=== PATIENT | male | born 1945 | race Caucasian/White ===

== ENCOUNTER 2022-11-07 07:42 | Inpatient (IN) | payer MEDICARE, SELFPAY ==
[2022-11-07] VITALS (67 sets, daily range): BP systolic 98–189; BP diastolic 50–135; PULSE 44–70; RESP 3–29; TEMP 36.4–36.8; O2SAT 82–100; BMI 28.8
[2022-11-07 07:58] LABS: Glucose Point of Care 252 mg/dL (70-110)
--- NOTE | 2022-11-07 08:20 | ECG_ITS ---
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 Measurements Intervals [place] Rate: 54 P: 0 NC: 0 QRS: 19 QRSD: 180 T: 165 QT: 530 QTc: 503 Interpretive Statements ATRIAL FIBRILLATION WITH SLOW VENTRICULAR RESPONSE LEFT BUNDLE BRANCH BLOCK [120+ ms QRS DURATION, 80+ ms Q/S IN V1/V2, 85+ ms R IN I/aVL/V5/V6] INTERPRETATION BASED ON A DEFAULT AGE OF 40 YEARS No previous ECG available for comparison Electronically Signed On 11-08-2022 23:39:42 CDT by North Fernando M.D. [id number] jose maria
--- NOTE | 2022-11-07 08:21 | W.ED.DIZZY ---
HPI - Dizziness General: Chief Complaint: Dizziness Stated Complaint: BRADYCARDIA; N/V Time Seen by Provider: 11/07/22 08:10 History of Present Illness: HPI Narrative: Patient presents to the ER with complaints of nausea vomiting for over the last week. Patient is also bradycardic. Patient saw his family doc last week and was put on calcitriol. Patient also had his metolazone, furosemide, and losartan adjusted. Family thinks these are just too much medication changes at this time. There is no other sick contacts in the house. MD elicited complaint: dizziness (And nausea vomiting) Onset (ago): day(s) (1 week ago after starting calcitriol) Severity: moderate Exacerbating factors: nothing Relieving factors: nothing Associated symptoms: Reports no associated symptoms, nausea and vomiting Associated neuro symptoms: Reports no associated symptoms Review of Systems General: Reports: 10 or more systems reviewed and unremarkable except in HPI and below GI: Reports: nausea and vomiting Physical Exam Const: COMMON NORMALS: no acute distress, average body habitus, patient oriented x3, no limitations, healthy appearing, alert and well nourished HENMT: COMMON NORMALS: normocephalic, atraumatic, hearing grossly normal bilaterally, external ears normal, Normal external nose present and moist oral mucous membranes HEAD & SCALP: normocephalic and atraumatic NOSE: Normal external nose present EXTERNAL EAR: Yes external ears normal Eye: COMMON NORMALS: Equal, round and reactive pupils present, EOMs intact bilaterally, conjunctivae normal and no scleral icterus CONJUNCTIVA: Yes conjunctivae normal PUPIL: Yes Equal, round and reactive pupils present Neck/C-Spine: COMMON NORMALS: full ROM, no lymphadenopathy, supple, no meningeal signs, no JVD and Thyroid normal THYROID: Thyroid normal Chest: COMMONS NORMALS: normal inspection of the chest and normal palpation of entire chest wall Resp: COMMON NORMALS: normal respiratory effort, No retractions, No use of accessory muscles and clear to auscultation bilaterally AUSCULTATION: clear to auscultation bilaterally Cardio: COMMON NORMALS: no JVD, regular rate, regular rhythm, S1 normal heart sound present, S2 normal heart sound present, No gallops present (Cardio), No clicks present (Cardio) and No murmurs present (Cardio) RATE: regular rate RHYTHM: regular rhythm HEART SOUNDS: S1 normal heart sound present and S2 normal heart sound present GI: COMMON NORMALS: Normal to inspection, nondistended, normoactive bowel sounds present, Soft to palpation, non-tender, No hepatosplenomegaly present and no masses PALPATION: Yes Soft to palpation and Yes No hepatosplenomegaly present Neuro: COMMON NORMALS: patient oriented x3 SENSORIUM/ORIENTATION: Yes alert MENINGEAL SIGNS: Yes no meningeal signs Course Vital Signs: Vital signs: Vital Signs Temperature 97.5 F L 11/07/22 07:46 Pulse Rate 55 L 11/07/22 07:46 Respiratory Rate 16 11/07/22 07:46 Blood Pressure 106/50 11/07/22 07:46 Pulse Oximetry 93 11/07/22 07:46 Oxygen Delivery Me thod Room Air 11/07/22 07:46 MDM - Dizziness Medical Decision Making Patient presents to the ER with a 1 week history of nausea vomiting and overall weakness. Patient thought this was due to medication changes approximately 1 week ago with his family doc. He was started on calcitriol. Patient denies any chest pain. Physical exam was performed lab work was obtained which showed a white count of 12.4, BUN creatinine of 52 and 2.1, sodium 132, potassium of 2.1, EKG showed A-fib with slow ventricular response with left bundle branch block, initial troponin was 57. Patient was given 40 mEq orally potassium 1 L normal saline. During these times he had at least 3 bouts of unsustained V-fib. Patient was asymptomatic during these times. Patient is currently on amiodarone and we will supplement with [address] Nielsen was consulted and agrees with inpatient admission to [facility] for further evaluation and treatment. Differential Diagnosis Likely adverse reaction to drug and orthostatic hypotension; Unlikely benign paroxysmal positional vertigo, vertebral basilar insufficiency, cerebrovascular accident, acute vestibular neuronitis or transient cerebral ischemia Medical Records I reviewed the patient's medical records. Lab Data I reviewed the patient's lab results. 11/07/22 07:44 11/07/22 07:44 Laboratory Results WBC 12.4 10^3/uL (4.0-10.0) H 11/07/22 07:44 RBC 6.14 10^6/uL (4.1-5.3) H 11/07/22 07:44 Hgb 18.0 g/dL (11.7-16.6) H 11/07/22 07:44 Hct 52.5 % (42.0-52.0) H 11/07/22 07:44 MCV 85.5 fl (80-94) 11/07/22 07:44 MCH 29.3 pg (28.0-34.0) 11/07/22 07:44 MCHC 34.3 g/dL (30.0-36.0) 11/07/22 07:44 RDW 13.9 % (12.1-15.1) 11/07/22 07:44 Plt Count 287 10^3/cmm (130-400) 11/07/22 07:44 MPV 11.0 fL (7.4-10.4) H 11/07/22 07:44 Neut % (Auto) 83.5 % 11/07/22 07:44 Lymph % (Auto) 6.3 % 11/07/22 07:44 Mcclain % (Auto) 9.1 % 11/07/22 07:44 Eos % (Auto) 0.2 % 11/07/22 07:44 Baso % (Auto) 0.2 % 11/07/22 07:44 Neut # (Auto) 10.38 10^3/uL (1.8-7.7) H 11/07/22 07:44 Lymph # (Auto) 0.8 10^3/uL (0.8-4.8) 11/07/22 07:44 Mcclain # (Auto) 1.1 10^3/uL (0.2-0.9) H 11/07/22 07:44 Eos # (Auto) 0.0 10^3/uL (0.0-0.8) 11/07/22 07:44 Baso # (Auto) 0.0 10^3/uL (0.0-0.1) 11/07/22 07:44 Nucleated RBC % (auto) 0 % 11/07/22 07:44 Nucleated RBCs # 0.0 /100WBC 11/07/22 07:44 Sodium 132 mmol/L (136-145) L 11/07/22 07:44 Potassium 2.1 mmol/L (3.5-5.1) L* 11/07/22 07:44 Chloride 78 mmol/L (98-107) L 11/07/22 07:44 Carbon Dioxide 38 mmol/L (22-29) H 11/07/22 07:44 Anion Gap 18.1 (5-19) 11/07/22 07:44 BUN 52 mg/dL (8-23) H 11/07/22 07:44 Creatinine 2.1 mg/dL (0.7-1.2) H 11/07/22 07:44 GFR Calculation Not Reportable 11/07/22 07:44 Glucose 248 mg/dL (65-115) H 11/07/22 07:44 POC Glucose 252 mg/dL (70-110) H 11/07/22 07:53 Calculated Osmolality 296 mOsm/kg (285-295) H 11/07/22 07:44 Calcium 9.9 mg/dL (8.5-10.5) 11/07/22 07:44 Magnesium 2.9 mg/dL (1.7-2.3) H 11/07/22 07:44 Total Bilirubin 2.5 mg/dL (0.15-1.2) H 11/07/22 07:44 AST 35 U/L (0-40) 11/07/22 07:44 ALT 53 U/L (0-41) H 11/07/22 07:44 Alkaline Phosphatase 190 U/L (40-130) H 11/07/22 07:44 Troponin T Gen 5 ng/L 57 ng/L (0-15) H 11/07/22 07:44 Total Protein 7.1 g/dL (6.6-8.7) 11/07/22 07:44 Albumin 4.2 g/dL (3.5-5.2) 11/07/22 07:44 Globulin 2.9 g/dL (1.3-4.6) 11/07/22 07:44 Urine Color Yellow (Yellow) 11/07/22 09:00 Urine Appearance Clear (CLEAR) 11/07/22 09:00 Urine pH 5 (5-7) 11/07/22 09:00 Ur Specific [place] 1.015 (1.005-1.030) 11/07/22 09:00 Urine Protein Neg (Negative) 11/07/22 09:00 Urine Glucose (UA) 4+ (Normal) H 11/07/22 09:00 Urine Ketones Negative (Negative) 11/07/22 09:00 Urine Blood Neg (Negative) 11/07/22 09:00 Urine Nitrate Negative (Negative) 11/07/22 09:00 Urine Bilirubin Neg (Negative) 11/07/22 09:00 Urine Urobilinogen Norm mg/dL (Negative) 11/07/22 09:00 Ur Leukocyte Esterase Negative (Negative) 11/07/22 09:00 EKG Data EKG 1: I personally reviewed and interpreted this EKG as follows: EKG interpretation date: 11/07/22 EKG interpretation time: 07:45 Prior EKG tracings: not available for review Interpretation: EKG showed shows ventricular rate of 54 bpm, atrial fibrillation with slow ventricular response, QRS duration 180, QTc of 515, left bundle branch block, EKG 2: I personally reviewed and interpreted this EKG as follows: EKG interpretation date: 11/07/22 EKG interpretation time: 09:56 Prior EKG tracings: available for review Interpretation: EKG showed A-fib with slow ventricular response with a rate of 49 bpm, QRS duration 178, QTc of 509, left bundle branch block, Discharge Plan Discharge Patient Disposition: Admitted As Inpatient Clinical Impression: Idiopathic ventricular fibrillation, Atrial fibrillation with slow ventricular response, Acute hypokalemia, Acute renal insufficiency, Hypermagnesemia Condition: Stable Prescriptions: No Action losartan 50 mg tablet 50 mg PO DAILY furosemide 40 mg tablet 40 mg PO BID metolazone 2.5 mg tablet See Rx Instructions .ROUTE .COMPLEX Rx Instructions: 2.5 mg orally Tuesday, , Tuesday atorvastatin 80 mg tablet 80 mg PO DAILY glyburide 5 mg tablet 5 mg PO BID amiodarone 200 mg tablet 200 mg PO DAILY clopidogrel 75 mg tablet 75 mg PO DAILY isosorbide mononitrate 60 mg tablet extended release 24 hr 60 mg PO DAILY tamsulosin 0.4 mg capsule 0.4 mg PO DAILY nitroglycerin 0.4 mg tablet, sublingual 0.4 mg sublingual Q5MIN PRN (Reason: Chest Pain) Farxiga 10 mg tablet 10 mg PO DAILY Coding Level of Care Code ED Regulator Pin Inserter for Prema Flower
[2022-11-07 08:36] LABS: Basophils % 0.2 %; Eosinophils % 0.2 %; Hematocrit 52.5 % (42.0-52.0); Lymphocytes # 0.8 10^3/uL (0.8-4.8); Lymphocytes % 6.3 %; Mean Corpuscular HGB Conc 34.3 g/dL (30.0-36.0); Mean Corpuscular Hemoglobin 29.3 pg (28.0-34.0); Mean Corpuscular Volume 85.5 fl (80-94); Monocytes # 1.1 10^3/uL (0.2-0.9); Monocytes % 9.1 %; Neutrophils # 10.38 10^3/uL (1.8-7.7); Neutrophils % 83.5 %; Nucleated Red Blood Cells % 0 %; Platelet Count 287 10^3/cmm (130-400); Red Blood Count 6.14 10^6/uL (4.1-5.3); Red Cell Distribution Width 13.9 % (12.1-15.1); White Blood Count 12.4 10^3/uL (4.0-10.0)
[2022-11-07 08:50] LABS: Alanine Aminotransferase 53 U/L (0-41); Albumin Level 4.2 g/dL (3.5-5.2); Alkaline Phosphatase 190 U/L (40-130); Anion Gap 18.1 (5-19); Aspartate Amino Transferase 35 U/L (0-40); Blood Urea Nitrogen 52 mg/dL (8-23); Calcium 9.9 mg/dL (8.5-10.5); Carbon Dioxide 38 mmol/L (22-29); Chloride 78 mmol/L (98-107); Globulin 2.9 g/dL (1.3-4.6); Glucose 248 mg/dL (65-115); Magnesium 2.9 mg/dL (1.7-2.3); Osmolality Calculated 296 mOsm/kg (285-295); Sodium 132 mmol/L (136-145); Total Bilirubin 2.5 mg/dL (0.15-1.2); Total Protein 7.1 g/dL (6.6-8.7)
[2022-11-07 09:04] LABS: Troponin T (5th) Once 57 ng/L (0-15)
[2022-11-07 09:04] LABS: Add Urine Microscopic? NO; Charge for UA Resulting for Rev
[2022-11-07 09:05] LABS: Potassium 2.1 mmol/L (3.5-5.1)
[2022-11-07 09:18] LABS: Bilirubin Urine Neg (Negative); Blood Urine Neg (Negative); Glucose Urine UA 4+ (Normal); Ketones Urine Negative (Negative); Leukocyte Esterase Urine Negative (Negative); Nitrate Urine Negative (Negative); Protein Urine Neg (Negative); Specific Gravity, Urine 1.015 (1.005-1.030); Urine Appearance Clear (CLEAR); Urine Color Yellow (Yellow); Urobilinogen Urine Norm (Negative); pH Urine 5 (5-7)
[2022-11-07] MEDS: potassium chloride ER 20 mEq Tablet 40 MEQ PO (09:19)
[2022-11-07] MEDS: ondansetron 2 mg/ML SDV 2 mL 4 MG IVP (09:19)
[2022-11-07] MEDS: sodium chloride 0.9% 1,000 ML 999 ML IV (09:21)
--- NOTE | 2022-11-07 09:56 | ECG_ITS ---
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 Measurements Intervals [place] Rate: 49 P: 0 [place]: 0 QRS: 16 QRSD: 178 T: 161 QT: 538 QTc: 489 Interpretive Statements ATRIAL FIBRILLATION WITH SLOW VENTRICULAR RESPONSE LEFT BUNDLE BRANCH BLOCK [120+ ms QRS DURATION, 80+ ms Q/S IN V1/V2, 85+ ms R IN I/aVL/V5/V6] Compared to ECG 11/07/2022 07:45:39 No significant changes Electronically Signed On 11-08-2022 23:37:21 CDT by North Fernando M.D. [id number]
--- NOTE | 2022-11-07 10:49 | PC.NURSE ---
PC TO PHARMACY SPOKE WITH [facility] PHARMACIST HE STATED THAT AMIODARONE CAN BE ADM OF 10 MINUTES UNDILUTED SLOW IVP.
[2022-11-07] MEDS: amiodarone 50 mg/mL SDV 3 mL 150 MG IVP (10:53)
--- NOTE | 2022-11-07 11:11 | PC.NURSE ---
REPORT CALLED TO JERI RN IN [facility] SHE REPORTED THAT THE ROOM WAS NOT AVAILABLE AT THIS TIME AND THAT SHE WOULD CALL US WHEN IT WAS READY.
--- NOTE | 2022-11-07 12:45 | PC.NURSE ---
arrived from ER Pt is alert, orientedx4. denies any chest pain or discomfort. Pt is oriented to room and staff. telemetry attached to pt. pt is on slow Afib w/LBBB. call light provided to pt. notified provider on pt's arrival to room.
--- NOTE | 2022-11-07 12:46 | USCV_ITS ---
Pola Lucero Age: 77 Gender: M : 1945 Exam Date: 11/07/2022 15:37 Ordering Phys: Davy Nielsen MD Technologist: Diallo Grant [place] [facility] [place]: afib BP: 107 / 69 HR: Rhythm: Sinus Technical Quality: Adequate MEASUREMENTS (Male / Female) Normal Values 2D ECHO LV Diastolic Diameter PLAX 4.9 cm 4.2 - 5.9 / 3.9 - 5.3 cm LV Systolic Diameter PLAX 2.8 cm IVS Diastolic Thickness 1.3 cm 0.6 - 1.0 / 0.6 - 0.9 cm IVS Systolic Thickness 1.7 cm LVPW Diastolic Thickness 1.5 cm 0.6 - 1.0 / 0.6 - 0.9 cm LVPW Systolic Thickness 1.5 cm LVOT Diameter 2.0 cm LV Ejection Fraction 2D Teich 67.0 % LV Ejection Fraction MOD 2C 57.1 % LV Ejection Fraction 2C AL 57.0 % LA Diameter 4.6 cm IVC Diameter 1.8 cm M-MODE Aortic Annulus Diameter 3.6 cm LA Ao Ratio MM 1.4 MV E Point Septal Separation 2.0 cm DOPPLER AV Peak Velocity 207.0 cm/s LVOT Peak Velocity 125.0 cm/s AV Area Cont Eq vti 1.8 cm squared AV Area Cont Eq pk 1.9 cm squared MV Area PHT 5.0 cm squared Mitral E to A Ratio 1.3 MV E' Velocity 42.0 cm/s Mitral E to MV E' Ratio 9.4 Mitral E to LV E' Lateral Ratio 6.6 Mitral E to LV E' Septal Ratio 17.1 TR Peak Velocity 176.0 cm/s TR Peak Gradient 12.4 mmHg TV Peak E Velocity 77.0 cm/s Right Atrial Pressure 3.0 mmHg Pulmonary Artery Systolic Pressu 15.4 mmHg RV Acceleration Time 0.1 s FINDINGS Left Ventricle Normal left ventricular size, mild systolic dysfunction and wall thickness, with no regional wall motion abnormalities. Normal left ventricular wall thickness. Normal diastolic filling pattern. EF 40-45% . Baseline rhythm AF which mat effect LV function determination Right Ventricle The right ventricle is normal in size and function. Right Atrium The right atrium is normal in size. Left Atrium The left atrium is normal in size. Mitral Valve Structurally normal mitral valve without significant stenosis or prolapse. There is no mitral regurgitation. Aortic Valve Structurally normal aortic valve without significant sclerosis or stenosis. There is no aortic regurgitation. Mild restriction aortic valve . Calcified Tricuspid Valve Structurally normal tricuspid valve without significant stenosis or regurgitation. Pulmonary artery systolic pressure is normal. Pulmonic Valve Structurally normal pulmonic valve without significant stenosis. There is no pulmonic regurgitation. Pericardium Normal pericardium without effusion. Aorta Normal ascending aorta dimension. IVC The inferior vena cava appears normal. CONCLUSIONS Inocencia Abdi MD (Electronically Signed) Final Date: 07 Nov 2022 17:08 S
--- NOTE | 2022-11-07 12:47 | P.HP_ITS ---
Providers/Chief Complaint Admitting Physician: Davy Nielsen MD Chief Complaint: BRADYCARDIA; N/V History of Present Illness Pola Lucero is a 77 year old male with a history of atrial fibrillation, on Eliquis, HFrEF, with EF of 40 to 45%, CKD, hypertension, Came in with chief complaint of, ongoing dizziness, nausea, vomiting, generaliz ed weakness, going on for the last 3 days, dizziness was worse today, recent medication adjustments were made by his technical translator in [place], calcitriol was added, possibly dose adjustment was made to Lasix metolazone and losartan ,but the specific details are currently available. When he came to the ER, he was found to be severely hypokalemic, with serum potassium of 2.1, in the ER he also experienced, at least 3 episodes of nonsustained V-fib as per the ER chart, which he was given amiodarone 150 mg IV bolus. Patient also had an episode of nonsustained VT on the floor, he was completely asymptomatic during the episode and was deep asleep. EKG has shown A-fib with slow ventricular response. Pertinent labs: Includes : WBC:12.4, H&H:18/52 , plt : 287 , sodium 132, serum potassium 2.1, BUN: 52 , SCR: 2.1 , magnesium: 2.9 , baseline troponin 56. Patient was given p.o. potassium 40 in ER. Review of Systems General: Reports: 10 or more systems reviewed and unremarkable except in HPI and below Const: Denies: fever(s), chills, body aches, change in appetite or diaphoresis Card: Denies: palpitations, edema, swelling of feet/ankles, dyspnea on exertion, orthopnea or leg pain with exertion Resp: Denies: dyspnea, productive cough, wheezing or pain on inspiration GI: Denies: abdominal pain, nausea, vomiting, diarrhea or constipation : Denies: flank pain or difficulty urinating Musc: Denies: back pain, extremity pain or extremity swelling Neuro: Denies: headache(s), difficulty walking or confusion Medications/Allergies Home Medications Medication Instructions Recorded Confirmed Last Taken Type amiodarone 200 mg tablet 200 mg PO DAILY 11/07/22 11/07/22 11/06/22 History apixaban 5 mg tablet (Eliquis) 5 mg PO BID 11/07/22 11/07/22 11/06/22 History atorvastatin 80 mg tablet 80 mg PO BEDTIME 11/07/22 11/07/22 11/06/22 History clopidogrel 75 mg tablet 75 mg PO DAILY 11/07/22 11/07/22 11/06/22 History dapagliflozin 10 mg tablet 10 mg PO DAILY 11/07/22 11/07/22 11/06/22 History ([facility]) furosemide 40 mg tablet 40 mg PO DAILY 11/07/22 11/07/22 11/06/22 History glyburide 5 mg tablet 5 mg PO BID 11/07/22 11/07/22 11/06/22 History isosorbide mononitrate 60 mg 60 mg PO DAILY 11/07/22 11/07/22 11/06/22 History tablet,extended release 24 hr losartan 50 mg tablet 50 mg PO DAILY 11/07/22 11/07/22 11/06/22 History metolazone 2.5 mg tablet See Rx Instructions .Route .COMPLEX 11/07/22 11/07/22 11/05/22 History nitroglycerin 0.4 mg sublingual 0.4 mg sublingual Q5MIN PRN Chest 11/07/22 11/07/22 Unknown History tablet Pain omeprazole magnesium 20 mg 20 mg PO DAILY 11/07/22 11/07/22 11/06/22 History capsule,delayed release tamsulosin 0.4 mg capsule 0.4 mg PO BEDTIME 11/07/22 11/07/22 11/06/22 History Allergies Allergy/AdvReac Type Severity Reaction Status Date / Time adhesive tape Allergy Unknown Unknown Verified 11/07/22 09:18 calcitriol Allergy ADR/ALGY-Hy Verified 11/07/22 09:24 potension dulaglutide [From Trulicity] Allergy ADR-Nausea Verified 11/07/22 09:24 fentanyl Allergy ADR-Nausea Verified 11/07/22 09:24 naproxen [From Aleve] Allergy ALGY-Rash Verified 11/07/22 09:24 Vitals/I&O/Wt Last Vital Signs Temp 97.5 F L 11/07/22 07:46 Pulse 49 L 11/07/22 12:29 Resp 16 11/07/22 12:29 BP 98/63 11/07/22 12:29 Pulse Ox 91 11/07/22 12:29 O2 Del Method Room Air 11/07/22 12:29 11/06/22 11/07/22 11/07/22 22:59 06:59 14:59 Intake Total 1000 / 1000 Balance 1000 / 1000 Weight last 48 hrs Weight 86.183 kg Physical Exam Const: COMMON NORMALS: patient oriented x3 HENMT: COMMON NORMALS: normocephalic and atraumatic Resp: COMMON NORMALS: normal respiratory effort, No retractions, No use of acc essory muscles and clear to auscultation bilaterally EFFORT & INSPECTION: Yes symmetric chest movement AUSCULTATION: clear to auscultation bilaterally Cardio: OTHER: Irregularly irregular rhythm S1-S2 variable intensity GI: COMMON NORMALS: Normal to inspection, nondistended, normoactive bowel sounds present, Soft to palpation, non-tender, No hepatosplenomegaly present and no masses AUSCULTATION: Yes normoactive bowel sounds PALPATION: Yes Soft to palpation and Yes No hepatosplenomegaly present RECTAL EXAM: Yes deferred Extremity: COMMON NORMALS: no clubbing, cyanosis or edema and no pedal edema Neuro: COMMON NORMALS: patient oriented x3 Data 11/07/22 07:44 11/07/22 18:45 A&P Assessment and plan (1) Idiopathic ventricular fibrillation: (2) Atrial fibrillation with slow ventricular response: (3) Acute hypokalemia: (4) Acute kidney injury superimposed on CKD: (5) Transaminitis: (6) Elevated bilirubin: (7) Diabetes: (8) Hyponatremia: (9) Total bilirubin, elevated: Plan 77 year old male with a history of atrial fibrillation, on Eliquis, HFrEF, with EF of 40 to 45%, CKD, hypertension, Came in with chief complaint of, ongoing dizziness, nausea, vomiting, generalized weakness, going on for the last 3 days, dizziness was worse today, r ecent medication adjustments were made by his technical translator in [place], calcitriol was added, possibly dose adjustment was made to Lasix metolazone and losartan. Assessment: Nonsustained VT/ VF: Likely secondary to severe hypokalemia: Possibly secondary to recent changes made to the diuretic. 2D echo: Normal left ventricular size, mild systolic dysfunction and wall thickness, with no regional wall motion abnormalities.Normal left ventricular wall thickness. Normal diastolic filling ?pattern. EF 40-45% .The right ventricle is normal in size and function. No gross valvular abnormality. No RWMA noted. Aggressive potassium correction has been undertaken, currently he has received 60 mEq IV potassium, as well as 40 mEq p.o. potassium. Serum potassium is being monitored. Lasix metolazone has been kept on hold. Continue telemetry monitoring Consider cardiology consult History of atrial fibrillation: Continue amiodarone Currently on Lovenox for therapeutic anticoagulation We will resume Eliquis on discharge HFrEF : Currently compensated: Rather slightly dry Monitor intake and output charting. Daily weight. CKD versus LELAND on CKD: Admission serum creatinine 2.1 Baseline serum creatinine unknown Monitor BMP Avoid nephrotoxic's Monitor electrolytes Monitor intake output charting Currently on IV hydration with normal saline Random urine sodium Random urine creatinine Hold losartan History of hypertension: Blood pressure is currently soft: Hold losartan and IMDUR FOR NOW History of diabetes: LDSSI, monitor fingerstick glucose Diabetic diet History of coronary artery disease: Continue Plavix statin CODE STATUS: Full code DVT prophylaxis: On Lovenox Attestations Medical Necessity Statement*: Patient is to be in hospital management of acute hypokalemia, need for IV potassium replacement. Anticipated length of stay: Greater than 2 midnights Coding Level of Care Code Acute Code for g Fwd Diagnoses Idiopathic ventricular fibrillation I49.01 Atrial fibrillation with slow ventricular response I48.91 Acute hypokalemia E87.6 Acute kidney injury superimposed on CKD N17.9; N18.9 Transaminitis R74.01 Elevated bilirubin R17 Diabetes E11.9 Hyponatremia E87.1 Total bilirubin, elevated R17
[2022-11-07 13:08] LABS: Glucose Point of Care 256 mg/dL (70-110)
[2022-11-07] MEDS: heparin 5,000 unit/mL INJ 1 mL 5000 UNIT SUBCUT (13:50)
[2022-11-07] MEDS: sodium chlor 0.9% + KCl 20 mEq 20 MEQ/1,000 ML BAG 100 MEQ IV ×2 (13:50→23:26)
[2022-11-07 14:51] LABS: Troponin T (5th) Once 56 ng/L (0-15)
--- NOTE | 2022-11-07 14:51 | PC.NURSE ---
VTach noted on the monitor Nurse in room with family at bedside. pt look his sleeping soundly. noted 18 beat of vtach. Pt is awoken from sleep. Pt woke up. he stated I almost falling in deep sleep. Pt denies any chest pain, or discomfort. Pt is alert, oriented. Family at bedside informed on pt's hr rhythm and his electrolyte potassium supplementation. dr ryan is notified via telephone on pt's vtach episode.
[2022-11-07 14:52] LABS: Anion Gap 15.5 (5-19); Blood Urea Nitrogen 50 mg/dL (8-23); Calcium 9.3 mg/dL (8.5-10.5); Carbon Dioxide 36 mmol/L (22-29); Chloride 82 mmol/L (98-107); Glucose 262 mg/dL (65-115); Osmolality Calculated 294 mOsm/kg (285-295); Sodium 131 mmol/L (136-145)
[2022-11-07] MEDS: lidocaine 1% 5 ML in potassium chloride premix 100 ML 26.25 ML IV (14:52)
[2022-11-07 15:01] LABS: Potassium 2.5 mmol/L (3.5-5.1)
[2022-11-07 17:15] LABS: Glucose Point of Care 185 mg/dL (70-110)
[2022-11-07] MEDS: insulin lispro 100 unit/1 mL SUBCUT ×2 (17:41→20:44)
[2022-11-07 19:23] LABS: Blood Urea Nitrogen 49 mg/dL (8-23); Calcium 8.3 mg/dL (8.5-10.5); Carbon Dioxide 33 mmol/L (22-29); Chloride 87 mmol/L (98-107); Glucose 224 mg/dL (65-115); Osmolality Calculated 292 mOsm/kg (285-295); Sodium 131 mmol/L (136-145)
--- NOTE | 2022-11-07 20:06 | PC.NURSE ---
pt stated he use cpap when he sleeps. 2 L per NC applied to pt while is going to bring his cpap from home.
[2022-11-07] MEDS: lidocaine 1% 5 ML in potassium chloride premix 100 ML 52.5 ML IV (20:43)
[2022-11-08] VITALS (36 sets, daily range): BP systolic 96–143; BP diastolic 42–69; PULSE 42–70; RESP 6–23; TEMP 36.5–37.2; O2SAT 82–95
[2022-11-08] MEDS: enoxaparin 100 mg/mL Syringe 90 MG SUBCUT ×2 (02:08→13:52)
[2022-11-08 02:44] LABS: Glucose Point of Care 196 mg/dL (70-110)
[2022-11-08 03:56] LABS: Basophils % 0.2 %; Eosinophils # 0.1 10^3/uL (0.0-0.8); Eosinophils % 0.4 %; Hematocrit 47.8 % (42.0-52.0); Hemoglobin 15.9 g/dL (11.7-16.6); Lymphocytes # 1.1 10^3/uL (0.8-4.8); Lymphocytes % 9.6 %; Mean Corpuscular HGB Conc 33.3 g/dL (30.0-36.0); Mean Corpuscular Hemoglobin 29.9 pg (28.0-34.0); Mean Platelet Volume 10.8 fL (7.4-10.4); Monocytes % 8.7 %; Neutrophils # 8.98 10^3/uL (1.8-7.7); Neutrophils % 80.5 %; Nucleated Red Blood Cells % 0 %; Platelet Count 219 10^3/cmm (130-400); Red Blood Count 5.31 10^6/uL (4.1-5.3); Red Cell Distribution Width 14.3 % (12.1-15.1); White Blood Count 11.2 10^3/uL (4.0-10.0)
[2022-11-08 04:15] LABS: Troponin T (5th) Once 47 ng/L (0-15)
[2022-11-08 04:18] LABS: Alanine Aminotransferase 39 U/L (0-41); Albumin Level 3.3 g/dL (3.5-5.2); Alkaline Phosphatase 143 U/L (40-130); Anion Gap 12.7 (5-19); Aspartate Amino Transferase 29 U/L (0-40); Blood Urea Nitrogen 45 mg/dL (8-23); Calcium 8.9 mg/dL (8.5-10.5); Carbon Dioxide 33 mmol/L (22-29); Chloride 92 mmol/L (98-107); Globulin 2.3 g/dL (1.3-4.6); Glucose 58 mg/dL (65-115); Magnesium 2.7 mg/dL (1.7-2.3); Osmolality Calculated 289 mOsm/kg (285-295); Sodium 135 mmol/L (136-145); Total Bilirubin 1.5 mg/dL (0.15-1.2); Total Protein 5.6 g/dL (6.6-8.7)
[2022-11-08 04:19] LABS: Potassium 2.7 mmol/L (3.5-5.1)
[2022-11-08] MEDS: potassium chloride ER 20 mEq Tablet 40 MEQ PO (05:31)
[2022-11-08 06:18] LABS: Glucose Point of Care 65 mg/dL (70-110)
[2022-11-08] MEDS: atorvastatin 40 mg Tablet 80 MG PO (09:10)
[2022-11-08] MEDS: tamsulosin 0.4 mg Capsule PO (09:10)
[2022-11-08] MEDS: sodium chlor 0.9% + KCl 20 mEq 20 MEQ/1,000 ML BAG 100 MEQ IV (09:10)
[2022-11-08] MEDS: clopidogrel 75 mg Tablet PO (09:10)
[2022-11-08 09:58] LABS: Blood Urea Nitrogen 40 mg/dL (8-23); Calcium 8.3 mg/dL (8.5-10.5); Carbon Dioxide 31 mmol/L (22-29); Chloride 94 mmol/L (98-107); Glucose 251 mg/dL (65-115); Osmolality Calculated 298 mOsm/kg (285-295); Sodium 135 mmol/L (136-145)
[2022-11-08 11:46] LABS: Glucose Point of Care 239 mg/dL (70-110)
[2022-11-08 12:38] LABS: Iron 53 ug/dL (59-158); Percent Saturation 21.2 % (20-50); Total Iron Binding Capacity 250 mcg/dl; Unsaturated Iron Binding 197 ug/dL (112-347)
[2022-11-08] MEDS: insulin lispro 100 unit/1 mL SUBCUT ×2 (12:42→21:20)
[2022-11-08] MEDS: potassium chloride ER 20 mEq Tablet 80 MEQ PO (12:42)
[2022-11-08 12:57] LABS: Thyroid Stimulating Hormone 0.69 uIU/mL (0.27-4.20); Vitamin B12 499 pg/mL (232-1245)
[2022-11-08 16:18] LABS: Glucose Point of Care 107 mg/dL (70-110)
[2022-11-08 17:36] LABS: Blood Urea Nitrogen 40 mg/dL (8-23); Calcium 8.5 mg/dL (8.5-10.5); Carbon Dioxide 32 mmol/L (22-29); Chloride 97 mmol/L (98-107); Creatinine Clr Calc Pharmacy 43.2459; Glucose 95 mg/dL (65-115); Osmolality Calculated 294 mOsm/kg (285-295); Sodium 137 mmol/L (136-145)
--- NOTE | 2022-11-08 17:49 | PM.PN ---
Subjective Subjective: Hospital course, labs appreciated. Seen with family at bedside. Patient sitting comfortably in bed. Denies any further dizziness. States he was having dizziness at home on changing position, while standing up from sitting position. Denied any chest pain or palpitation during the episode. Did have mild nausea. Patient has significant history of CAD with last stent around 1 years ago. Vitals/I&O/Wt Last Vital Signs Temp 98.2 F 11/08/22 16:00 Pulse 66 11/08/22 16:00 Resp 23 H 11/08/22 16:00 BP 109/57 11/08/22 16:00 Pulse Ox 90 11/08/22 16:00 O2 Del Method Nasal Cannula 11/08/22 16:00 O2 Flow Rate 1.5 11/07/22 19:01 11/08/22 11/08/22 11/08/22 06:59 14:59 22:59 Intake Total 1105 / 2450 2076.666 / 2076.666 360 / 2436.666 Output Total 400 / 1300 850 / 850 Balance 705 / 1150 1226.666 / 1226.666 360 / 1586.666 Weight last 48 hrs Weight 85.729 kg Weight 86.183 kg Physical Exam Narrative: EXAM NARRATIVE: General: No acute distress, AO x3, NC oxygen supplementation HEENT: PERRLA, pupils bilaterally equal and reactive Chest:Bronchial breath sounds b/l ,decreased air entry, equal good air entry bilaterally, no more fine basal crackles CVS: S1-S2 regular, no murmurs, no tachycardia, no gallops, no rubs Abdomen: Soft, nontender, no organomegaly, bowel sounds present, morbidly obese Neuro: No focal deficits, no facial deformity, AO x3, power 5/5 in all limbs Data 11/08/22 03:39 11/08/22 16:34 A&P Assessment and plan (1) Dizziness: (2) Nonsustained ventricular tachycardia: (3) Acute hypokalemia: (4) Atrial fibrillation with slow ventricular response: (5) Acute kidney injury superimposed on CKD: (6) Transaminitis: (7) Elevated bilirubin: (8) Diabetes: (9) Hyponatremia: (10) Total bilirubin, elevated: Plan 77 year old male with a history of atrial fibrillation, on Eliquis, HFrEF, with EF of 40 to 45%, CKD, hypertension, came in with chief complaint of, ongoing dizziness, nausea, vomiting, generalized weakness, going on for the last 3 days, dizziness was worse today, recent medication adjustments were made by his carbon capture power plant operator in [place], calcitriol was added, possibly dose adjustment was made to Lasix metolazone and losartan. Assessment: Dizziness: Multifactorial. Most likely in combination of nonsustained V. tach, acute hypokalemia and current bradycardia. Nonsustained V. tach: Could be secondary to electrolyte abnormality. Cannot rule out ischemia in setting of significant CAD. Troponin cycle not done on admission. Will check baseline troponin and if elevated will go ahead with with troponin cycle. Echocardiogram done shows an EF of 40 to 45% without regional wall motion abnormality. We will try to get documentation about past history from patient's rn licensed practical. Hypokalemia: Repleted in AM. Replete 80 mg once more. Repeat potassium in afternoon. Hold off on diuretics for now. Bradycardia: Patient does have history of atrial fibrillation. At baseline takes amiodarone 200 mg oral daily. Heart rate heart rate in low 50s at rest. Hold off on amiodarone. Monitor with telemetry. Check orthostatics. History of CAD: Denies any active chest pain. We will plan for Lexiscan stress test to rule out ischemia. Continue with home dose of Plavix, statin. Switch to Eliquis to full dose Lovenox 1 mg/kg body weight [place]ola hourly for now. Check A1c, lipid panel. Echocardiogram as above. CKD: As per patient his creatinine has been trending up recently. Has been following up with outpatient carbon capture power plant operator. Creatinine currently trending down. Repeat BMP in afternoon. Monitor strict input output charting., Daily weights. Stop IV fluids. Fluid restriction up to 1500 cc. Medical reconciliation done for nephrotoxic drugs. Hypertension: Goal blood pressure less than 140/90 mmHg with mean over 65. Blood pressure soft currently. At home takes Imdur 60 mg, losartan 50 mg. Hold off on antihypertensives for now. Type 2 diabetes mellitus: Check A1c. Stop OHA's. Insulin sliding scale before meals and at bedtime. Full code. Carb consistent cardiac diet. Attestations Medical Necessity Statement*: Requires further hospitalization for management of dizziness in setting of bradycardia, recurrent nonsustained V. tach, acute hypokalemia in a patient with baseline CAD post PCI Diagnoses Dizziness R42 Nonsustained ventricular tachycardia I47.29 Acute hypokalemia E87.6 Atrial fibrillation with slow ventricular response I48.91 Acute kidney injury superimposed on CKD N17.9; N18.9 Transaminitis R74.01 Elevated bilirubin R17 Diabetes E11.9 Hyponatremia E87.1 Total bilirubin, elevated R17
--- NOTE | 2022-11-08 17:57 | ECG_ITS ---
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 Interpretive Statements NAME OF STUDY: LEXISCAN SESTAMIBI STRESS TEST INDICATION: hx of cad PROCEDURE: At the baseline, the blood pressure was 113/66 mmHg with a heart rate of 58 bpm. The electrocardiogram showed atrial fibrillation, left bundle branch block. The Lexiscan was infused over a period of 20 seconds. A total of 0.4 milligrams of Lexiscan was infused. The stress phase was continued for a total of 5 minutes. Heart rate at the end of the stress phase was 68 bpm with a blood pressure 107/61 mmHg. The EKG at the peak infusion revealed no changes. Sestamibi was injected 20 seconds after the Lexiscan infusion. Blood pressure at the end of the recovery phase was 113 over 61 mm with a heart rate of 66 beats per minute. CONCLUSION: 1. Nondiagnostic EKG response to LexiScan infusion given baseline left bundle branch block. 2. No LexiScan induced chest pain or cardiac arrhythmia. 3. Normal blood pressure and heart rate response. 4. Sestamibi/sestamibi perfusion scan pending; see separate report. Electronically Signed On 11-09-2022 12:25:02 CDT by Mamie Waterman M.D. [email or web address]
[2022-11-09] VITALS (11 sets, daily range): BP systolic 108–144; BP diastolic 60–92; PULSE 54–73; RESP 16–20; TEMP 36.4–36.8; O2SAT 91–95
[2022-11-09] MEDS: enoxaparin 100 mg/mL Syringe 90 MG SUBCUT ×2 (03:09→15:42)
[2022-11-09 06:25] LABS: Basophils % 0.3 %; Eosinophils # 0.1 10^3/uL (0.0-0.8); Eosinophils % 1.6 %; Hematocrit 46.6 % (42.0-52.0); Hemoglobin 14.8 g/dL (11.7-16.6); Lymphocytes # 1.1 10^3/uL (0.8-4.8); Mean Corpuscular HGB Conc 31.8 g/dL (30.0-36.0); Mean Corpuscular Volume 91.4 fl (80-94); Mean Platelet Volume 11.5 fL (7.4-10.4); Monocytes # 0.7 10^3/uL (0.2-0.9); Monocytes % 9.3 %; Neutrophils # 5.94 10^3/uL (1.8-7.7); Neutrophils % 74.2 %; Nucleated Red Blood Cells % 0 %; Platelet Count 194 10^3/cmm (130-400); Red Cell Distribution Width 14.4 % (12.1-15.1)
[2022-11-09 06:43] LABS: Glucose Point of Care 99 mg/dL (70-110)
[2022-11-09 06:46] LABS: Alanine Aminotransferase 41 U/L (0-41); Albumin Level 3.1 g/dL (3.5-5.2); Alkaline Phosphatase 123 U/L (40-130); Anion Gap 12.5 (5-19); Aspartate Amino Transferase 30 U/L (0-40); Blood Urea Nitrogen 34 mg/dL (8-23); Calcium 8.6 mg/dL (8.5-10.5); Carbon Dioxide 30 mmol/L (22-29); Chloride 96 mmol/L (98-107); Chol HDL Ratio 2.33 mg/dL (1.0-5.00); Cholesterol 105 mg/dL (0-200); Globulin 2.3 g/dL (1.3-4.6); Glucose 78 mg/dL (65-115); HDL Cholesterol 45 mg/dL (60-100); LDL Cholesterol Calculated 49 mg/dL (50-129); Osmolality Calculated 286 mOsm/kg (285-295); Potassium 3.5 mmol/L (3.5-5.1); Sodium 135 mmol/L (136-145); Total Bilirubin 1.3 mg/dL (0.15-1.2); Total Protein 5.4 g/dL (6.6-8.7); Triglycerides 57 mg/dL (0-150); VLDL Cholestrol Calculation 11 mg/dL (0-30)
[2022-11-09 06:58] LABS: Estmated Average Glucose 183
[2022-11-09 07:07] LABS: Folate Level 9.5 ng/mL (4.5-32.2)
[2022-11-09] MEDS: regadenoson 0.4 Mg/5 ml Syringe IVP (07:07)
[2022-11-09 07:59] LABS: Glucose Point of Care 201 mg/dL (70-110)
[2022-11-09] MEDS: tamsulosin 0.4 mg Capsule PO (08:46)
[2022-11-09] MEDS: atorvastatin 40 mg Tablet 80 MG PO (08:46)
[2022-11-09] MEDS: clopidogrel 75 mg Tablet PO (08:46)
--- NOTE | 2022-11-09 09:13 | PC.CHAP ---
Pastoral Care Encounter/Spiritual Assessment Type of Contact [] Declined resource engineer visit [] Patient/Family/Request visit [] Outpatient visit [] Follow-up visit [] Physician referral [] Code/Alert [x] Routine visit [] Staff referral [] Actively dying [] Patient sleeping [x] Family support [] [] Out of room [] Palliative care [] [] Receiving care in room [] Pre-surgical visit [] Trauma [] Long length of stay [] ICU visit [] Other: Relational/Emotional Strength [x] Patient feels connected with others/family/visitors/staff [] Distress [] Loneliness/isolation [] Abandonment Spirituality of Patient [x] Person of Anita [] Attends Jainism of their Anita [x] Believes in Prayer [] Reads Bible or Bahai materials [] There are Spiritual issues to be addressed I&C Tech Interventions [x] Prayer [] Active listening [] Non-anxious presence [x] Spiritual/emotional support [] Crisis/trauma care [] Spiritual counseling [] Bereavement support [] Provided bereavement packet [] Provided Bible/devotional materials [] Provided toy/stuffed animal, coloring book to patient or family member [] Provided Communion [] Anointing/[place] [] Salvation [x] Completed spiritual assessment [] Other: Impact on Illness or Injury [] Angry [] Fearful [] Anxious [] Often cries [] Exhaustion [] Unable to work [] Unable to attend episcopal [] Unable to walk/stand [] Unable to read [] Unable to drive [] Unable to eat/drink [] Unable to sleep [] Unable to be with family [] Patient intubated [] Other: Summary Time spent with patient 5 min
[2022-11-09 11:42] LABS: Glucose Point of Care 276 mg/dL (70-110)
[2022-11-09] MEDS: insulin lispro 100 unit/1 mL SUBCUT ×2 (11:50→20:35)
--- NOTE | 2022-11-09 12:42 | P.PN_ITS ---
Subjective Subjective: No acute events overnight. Patient has remained hemodynamically stable and afebrile. Heart rate running in high 50s. Patient asymptomatic. Orthostatics checked yesterday negative. Documented urine output in last 24 hours up to 1600 cc. Telemetry has remained stable telemetry showing atrial fibrillation with controlled rate to bradycardia with few episodes of VPCs. Vitals/I&O/Wt Last Vital Signs Temp 97.6 F 11/09/22 08:22 Pulse 61 11/09/22 11:18 Resp 20 H 11/09/22 11:18 BP 114/60 11/09/22 11:18 Pulse Ox 91 11/09/22 11:18 O2 Del Method Room Air 11/09/22 11:18 O2 Flow Rate 2 11/09/22 04:00 11/08/22 11/09/22 11/09/22 22:59 06:59 14:59 Intake Total 360 / 2436.666 480 / 2916.666 240 / 240 Output Total 750 / 1600 630 / 2230 Balance -390 / 836.666 -150 / 686.666 240 / 240 Weight last 48 hrs Weight 85.956 kg Weight 85.729 kg Physical Exam Narrative: EXAM NARRATIVE: General: No acute distress, AO x3, NC oxygen supplementation HEENT: PERRLA, pupils bilaterally equal and reactive Chest:Bronchial breath sounds b/l ,decreased air entry, equal good air entry bilaterally, no more fine basal crackles CVS: S1-S2 regular, no murmurs, no tachycardia, no gallops, no rubs Abdomen: Soft, nontender, no organomegaly, bowel sounds present, morbidly obese Neuro: No focal deficits, no facial deformity, AO x3, power 5/5 in all limbs Data 11/09/22 04:23 11/09/22 04:23 A&P Assessment and plan (1) Dizziness: (2) Nonsustained ventricular tachycardia: (3) Acute hypokalemia: (4) Atrial fibrillation with slow ventricular response: (5) Acute kidney injury superimposed on CKD: (6) Transaminitis: (7) Elevated bilirubin: (8) Hyponatremia: (9) Total bilirubin, elevated: (10) Type 2 diabetes mellitus: Qualifiers: Diabetes mellitus [facility] use[facility] with [facility] Diabetes mellitus complication status: with kidney complications Diabetes mellitus compl ication detail: with chronic kidney disease Plan 77 year old male with a history of atrial fibrillation, on Eliquis, HFrEF, with EF of 40 to 45%, CKD, hypertension, came in with chief complaint of, ongoing dizziness, nausea, vomiting, generalized weakness, going on for the last 3 days, dizziness was worse today, recent medication adjustments were made by his cheesemaking laborer in [place], calcitriol was added, possibly dose adjustment was made to Lasix metolazone and losartan. Assessment: Dizziness: Multifactorial. Most likely in combination of nonsustained V. tach as seen in the monitoring manager in the ER, acute hypokalemia and current bradycardia. Nonsustained V. tach: Could be secondary to electrolyte abnormality. Cannot rule out ischemia in setting of significant CAD. Troponin cycle not done on admission. Will check baseline troponin and if elevated will go ahead with with troponin cycle. Echocardiogram done shows an EF of 40 to 45% without regional wall motion abnormality. Appreciate documents from outpatient director of operations for therapy at [place]. Hypokalemia: Resolved. 3.5 today. Continue to monitor daily for now. Hold off on diuretics for now. A-fib with bradycardia: Patient does have history of ablation with bradycardia in the past. At baseline takes amiodarone 200 mg oral daily. Heart rate heart rate in low 50s at rest. Heart rate stable. Will ambulate. Most likely will discharge on amiodarone at 100 mg oral daily. Monitor with telemetry. Repeat orthostatics. History of CAD: Denies any active chest pain. Lexiscan done today. Awaiting results. Continue with home dose of Plavix, statin. Continue with Lovenox 1 mg/kg body weight every 12 hourly for now. Appreciate A1c, lipid panel. Echocardiogram as above. CKD: As per patient his creatinine has been trending up recently. Has been following up with outpatient cheesemaking laborer. Creatinine currently trending down. Repeat BMP in afternoon. Monitor strict input output charting., Daily weights. Fluid restriction up to 1500 cc. Medical reconciliation done for nephrotoxic drugs. Hypertension: Goal blood pressure less than 140/90 mmHg with mean over 65. Blood pressure soft currently. At home takes Imdur 60 mg, losartan 50 mg. Hold off on antihypertensives for now. Continue to monitor. Most likely will discharge on adjusted antihypertensives. Type 2 diabetes mellitus: A1c 8. Stop OHA's. Insulin sliding scale before meals and at bedtime. Outpatient documents appreciated from director of operations for therapy at [place]. Document scanned in the chart. Patient has history of V-fib arrest back in 2012 when he required PCI to LAD and RCA with a EF of 25 to 30% which had most recently improved to 40%. Patient's last cardiac angiogram in August 2022 showed patent stent with 80% stenosis of D1 when he was asked for medical management. Also has history of atrial fibrillation post ablation with bradycardia. Full code. Carb consistent cardiac diet. Attestations Medical Necessity Statement*: Requires further hospitalization for management of atrial fibrillation with bradycardia, hypokalemia with episode of nonsustained V. tach leading to dizziness while ACS is ruled out Coding Level of Care Code 53065 High MDM includes number and complexity of problems actively addressed during encounter, amount and/or complexity of data reviewed/ordered (Reviewing outpatient documents faxed in from director of operations for therapy at [place]) [ previous or external records, resulted lab(s)/test(s), ordered lab(s)/test(s), independent historian, independent test interpretation and other healthcare professional discussion] and described risk of complication, morbidity or mortality of management as documented Diagnoses Dizziness R42 Nonsustained ventricular tachycardia I47.29 Acute hypokalemia E87.6 Atrial fibrillation with slow ventricular response I48.91 Acute kidney injury superimposed on CKD N17.9; N18.9 Transaminitis R74.01 Elevated bilirubin R17 Hyponatremia E87.1 Total bilirubin, elevated R17 Type 2 diabetes mellitus E11.9 Diabetes mellitus [facility] use: with [facility] Diabetes mellitus complication status: with kidney complications Diabetes mellitus complication detail: with chronic kidney disease
[2022-11-09 16:48] LABS: Glucose Point of Care 110 mg/dL (70-110)
--- NOTE | 2022-11-09 17:57 | NMCV_ITS ---
NM mayte perf SPECT r/s* [id number] Pola Lucero Age: 77 Gender: M : 1945 Exam Date: 11/09/2022 06:30 Ordering Phys: Johnathon Bruce MD Technologist: JOSÉ MIGUEL Sanchez Exam Location: [facility] Indications: CHEST PAIN STRESS TEST Please see separate stress test report in [facility] for full findings IMAGE PROTOCOL Rest/Stress 1 Lexiscan Day Radiopharmaceutical Dose (mCi) Administration Site Administered by Rest: Tc-99m 10.6 IV JOSÉ MIGUEL Douglas Sestamibi Stress:Tc-99m 32.9 IV JOSÉ MIGUEL Douglas Sestamibi Rest: 09-Nov-2022 60 Discovery 630 Stress: 09-Nov-2022 30 Discovery 630 0.4mg Lexiscan. Images obtained in supine and prone position. SPECT RESULTS Technical Quality: Excellent Raw Data Analysis: Normal Image Corrections: No attenuation or motion correction applied Summed Stress Score: 0 Summed Rest Score: 1 Summed Difference Score: 0 PERFUSION FINDINGS Small sized perfusion abnormality of mild severity of apical inferior wall on rest and supine stress images with improved tracer uptake on prone stress images. This likely represents attenuation artifact. FUNCTIONAL RESULTS (calculated via Gated SPECT) Stress Image LV EF (%): 46 Stress EDV (mL):136 TID: 0.98 Stress ESV (mL):73 FUNCTIONAL FINDINGS: The left ventricle is normal in size. Transient Ischemia Dilatation of 0.98. The left ventricular ejection fraction is mildly reduced with a value of 46%. There is mild global hypokinesis. IMPRESSIONS 1. Myocardial perfusion imaging is normal. 2. The left ventricular ejection fraction is mildly reduced with a value of 46%. 3. EKG portion of the study will be reported separately. 4. No coronary ischemia based on the study. Mamie Waterman MD (Electronically Signed) Final Date: 09 Nov 2022 12:28 S
[2022-11-09 20:15] LABS: Glucose Point of Care 234 mg/dL (70-110)
[2022-11-10] MEDS: enoxaparin 100 mg/mL Syringe 90 MG SUBCUT (02:29)
[2022-11-10 03:38] VITALS: BP 132/73; PULSE 63; RESP 21; TEMP 36.8; O2SAT 96
--- NOTE | 2022-11-10 03:48 | PC.NURSE ---
Patient's oxygen saturation drops into the mid 80s while sleeping. Nurse tech woke patient and asked him to put 2L of oxygen on via nasal cannula and patient's sats cecile back into the mid 90s. Patient resting in bed currently. No needs/complaints at this time.
[2022-11-10 04:01] LABS: Basophils % 0.5 %; Eosinophils # 0.1 10^3/uL (0.0-0.8); Eosinophils % 1.5 %; Hematocrit 45.5 % (42.0-52.0); Hemoglobin 14.9 g/dL (11.7-16.6); Lymphocytes # 1.1 10^3/uL (0.8-4.8); Lymphocytes % 13.9 %; Mean Corpuscular HGB Conc 32.7 g/dL (30.0-36.0); Mean Corpuscular Hemoglobin 29.4 pg (28.0-34.0); Mean Corpuscular Volume 89.9 fl (80-94); Mean Platelet Volume 11.2 fL (7.4-10.4); Monocytes # 0.7 10^3/uL (0.2-0.9); Monocytes % 9.5 %; Neutrophils # 5.72 10^3/uL (1.8-7.7); Nucleated Red Blood Cells % 0 %; Platelet Count 185 10^3/cmm (130-400); Red Blood Count 5.06 10^6/uL (4.1-5.3); Red Cell Distribution Width 14.5 % (12.1-15.1); White Blood Count 7.8 10^3/uL (4.0-10.0)
[2022-11-10 04:24] LABS: Alanine Aminotransferase 41 U/L (0-41); Albumin Level 3.1 g/dL (3.5-5.2); Alkaline Phosphatase 130 U/L (40-130); Anion Gap 10.2 (5-19); Aspartate Amino Transferase 26 U/L (0-40); Blood Urea Nitrogen 28 mg/dL (8-23); Carbon Dioxide 33 mmol/L (22-29); Chloride 99 mmol/L (98-107); Globulin 2.3 g/dL (1.3-4.6); Glucose 98 mg/dL (65-115); Osmolality Calculated 293 mOsm/kg (285-295); Potassium 3.2 mmol/L (3.5-5.1); Sodium 139 mmol/L (136-145); Total Protein 5.4 g/dL (6.6-8.7)
[2022-11-10 05:41] VITALS: PULSE 66
[2022-11-10 06:30] LABS: Glucose Point of Care 106 mg/dL (70-110)
[2022-11-10 07:39] VITALS: BP 133/70; PULSE 62; RESP 16; O2SAT 91
[2022-11-10] MEDS: clopidogrel 75 mg Tablet PO (08:18)
[2022-11-10] MEDS: tamsulosin 0.4 mg Capsule PO (08:18)
[2022-11-10] MEDS: atorvastatin 40 mg Tablet 80 MG PO (08:18)
--- NOTE | 2022-11-10 08:35 | PC.SOCIAL ---
IMM update IMM updated with patient and family. Copy pg 2 provided. Verbalized an understanding. Initialled, dated, timed, and placed in chart.
[2022-11-10 11:24] LABS: Glucose Point of Care 173 mg/dL (70-110)
--- NOTE | 2022-11-10 11:29 | PM.DCS ---
Discharge Providers Date of Admission: 11/07/22 12:44 Date of Discharge: November 10, 2022 Attending Provider at Admission: Davy Nielsen MD Attending Provider at Discharge: Johnathon Bruce MD Diagnoses at Discharge Discharge Diagnosis (1) Dizziness: Status: Acute (2) Nonsustained ventricular tachycardia: Status: Acute (3) Acute hypokalemia: Status: Acute (4) Atrial fibrillation with slow ventricular response: Status: Acute (5) Acute kidney injury superimposed on CKD: Status: Acute (6) Transaminitis: Status: Acute (7) Elevated bilirubin: Status: Acute (8) Hyponatremia: Status: Acute (9) Total bilirubin, elevated: Status: Acute (10) Type 2 diabetes mellitus: Status: Acute Qualifiers: Diabetes mellitus complication detail: with chronic kidney disease Diabetes mellitus complication status: with kidney complications 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 When he came to the ER, he was found to be severely hypokalemic, with serum potassium of 2.1, in the ER he also experienced, at least 3 episodes of nonsustained V-fib as per the ER chart, which he was given amiodarone 150 mg IV bolus. Patient also had an episode of nonsustained VT on the floor, he was completely asymptomatic during the episode and was deep asleep. EKG has shown A-fib with slow ventricular response.? Pertinent labs: Includes : WBC:12.4, H&H:18/52 , plt : 287 , sodium 132, serum potassium 2.1, BUN: 52 , SCR: 2.1 , magnesium: 2.9 , baseline troponin 56.? Patient was given p.o. potassium 40 in ER. Hospital Course Hospital Course Patient was admitted to the hospital for further evaluation and management. On admission there was a concern for possible nonsustained ventricular tachycardia versus a short run of V-fib which was seen in the ER. On admission he was found to be hypokalemic. He was admitted to cardiac stepdown unit and potassium was repleted aggressively. During hospitalization on telemetry patient continued to have recurrent episodes of VPCs with bradycardia and heart rate going down to low 50s. On admission he was also found to have low blood pressures and LELAND on CKD for which he was started on IV fluids. His renal functions came back to his baseline of around 1.4-1.5. Outpatient records from his carcass splitter at [place] were reviewed. It seems patient did have a cardiac angiogram done in August 2022 which showed a patent stent but 80% diagonal stenosis and for which he was advised medical management. With concerns for nonsustained V. tach, CAD in the past patient underwent cardiac stress test on 11/10 which was negative for acute ischemia. He has been discharged hemodynamically stable condition. Multiple medication changes have been done. His dose of amiodarone has been decreased to 100 mg oral daily. Lasix has been withheld for now. He is to check his body weight daily at home and once the body weight increases by 5 pounds he is to restart his Lasix. He is to continue taking his Imdur. Losartan has been held. He is to check his blood pressure daily at home with goal blood pressure 140/90 mmHg. He is to medial blood pressure diary and follow-up with a primary care provider within next 2 weeks for further adjustment of antihypertensives.. Get an event monitor placed for further monitoring of bradycardia and events of nonsustained V. tach. Patient might benefit from an ICD placement given recurrent episodes of nonsustained V. tach and history of V-fib arrest. Above all were discussed in detail with patient and patient's spouse at bedside. All the questions were answered. Physical Exam Narrative: EXAM NARRATIVE: General: No acute distress, AO x3, NC oxygen supplementation HEENT: PERRLA, pupils bilaterally equal and reactive Chest:Bronchial breath sounds b/l ,decreased air entry, equal good air entry bilaterally, no more fine basal crackles CVS: S1-S2 regular, no murmurs, no tachycardia, no gallops, no rubs Abdomen: Soft, nontender, no organomegaly, bowel sounds present, morbidly obese Neuro: No focal deficits, no facial deformity, AO x3, power 5/5 in all limbs Discharge Data Studies Completed and Pending Completed Studies During Hospitalization Category Date Time Status Sestamibi Stress Test Request Routine Exams 11/08/22 17:57 Completed NM mayte perf SPECT r/s* [id number] Routine Nuc Med 11/09/22 17:57 Completed CV. echo complete* [id number] Routine Ultrasound 11/07/22 12:46 Completed Laboratory Results WBC 7.8 10^3/uL (4.0-10.0) 11/10/22 03:23 RBC 5.06 10^6/uL (4.1-5.3) 11/10/22 03:23 Hgb 14.9 g/dL (11.7-16.6) 11/10/22 03: Hct 45.5 % (42.0-52.0) 11/10/22 03:23 MCV 89.9 fl (80-94) 11/10/22 03: MCH 29.4 pg (28.0-34.0) 11/10/22 03: MCHC 32.7 g/dL (30.0-36.0) 11/10/22 03: RDW 14.5 % (12.1-15.1) 11/10/22 03: Plt Count 185 10^3/cmm (130-400) 11/10/22 03: MPV 11.2 fL (7.4-10.4) H 11/10/22 03:23 Neut % (Auto) 74.0 % 11/10/22 03: Lymph % (Auto) 13.9 % 11/10/22 03:23 [place] % (Auto) 9.5 % 11/10/22 03:23 Eos % (Auto) 1.5 % 11/10/22 03:23 Baso % (Auto) 0.5 % 11/10/22 03:23 Neut # (Auto) 5.72 10^3/uL (1.8-7.7) 11/10/22 03:23 Lymph # (Auto) 1.1 10^3/uL (0.8-4.8) 11/10/22 03:23 [place] # (Auto) 0.7 10^3/uL (0.2-0.9) 11/10/22 03:23 Eos # (Auto) 0.1 10^3/uL (0.0-0.8) 11/10/22 03:23 Baso # (Auto) 0.0 10^3/uL (0.0-0.1) 11/10/22 03:23 Nucleated RBC % (auto) 0 % 11/10/22 03:23 Nucleated RBCs # 0.0 /100WBC 11/10/22 03:23 Sodium 139 mmol/L (136-145) 11/10/22 03:23 Potassium 3.2 mmol/L (3.5-5.1) L 11/10/22 03:23 Chloride 99 mmol/L (98-107) 11/10/22 03:23 Carbon Dioxide 33 mmol/L (22-29) H 11/10/22 03:23 Anion Gap 10.2 (5-19) 11/10/22 03:23 BUN 28 mg/dL (8-23) H 11/10/22 03:23 Creatinine 1.4 mg/dL (0.7-1.2) H 11/10/22 03:23 GFR Calculation Not Reportable 11/10/22 03:23 Glucose 98 mg/dL (65-115) 11/10/22 03:23 POC Glucose 173 mg/dL (70-110) H 11/10/22 10:54 Estimat Average Glucose 183 11/09/22 04:23 Hemoglobin A1c 8.0 % (4.0-6.0) H 11/09/22 04:23 Calculated Osmolality 293 mOsm/kg (285-295) 11/10/22 03:23 Calcium 8.0 mg/dL (8.5-10.5) L 11/10/22 03:23 Magnesium 2.7 mg/dL (1.7-2.3) H 11/08/22 03:39 Iron 53 ug/dL (59-158) L 11/08/22 09:21 TIBC 250 mcg/dl 11/08/22 09:21 % Saturation 21.2 % (20-50) 11/08/22 09:21 Unsat Iron Binding 197 ug/dL (112-347) 11/08/22 09:21 Total Bilirubin 1.0 mg/dL (0.15-1.2) 11/10/22 03:23 AST 26 U/L (0-40) 11/10/22 03:23 ALT 41 U/L (0-41) 11/10/22 03:23 Alkaline Phosphatase 130 U/L (40-130) 11/10/22 03:23 Troponin T Gen 5 ng/L 47 ng/L (0-15) H 11/08/22 03:39 Total Protein 5.4 g/dL (6.6-8.7) L 11/10/22 03:23 Albumin 3.1 g/dL (3.5-5.2) L 11/10/22 03:23 Globulin 2.3 g/dL (1.3-4.6) 11/10/22 03:23 Triglycerides 57 mg/dL (0-150) 11/09/22 04:23 Cholesterol 105 mg/dL (0-200) 11/09/22 04:23 LDL Cholesterol, Calc 49 mg/dL (50-129) L 11/09/22 04:23 Total VLDL Cholesterol 11 mg/dL (0-30) 11/09/22 04:23 HDL Cholesterol 45 mg/dL (60-100) L 11/09/22 04:23 Cholesterol/HDL Ratio 2.33 mg/dL (1.0-5.00) 11/09/22 04:23 Vitamin B12 499 pg/mL (232-1245) 11/08/22 09:21 Folate 9.5 ng/mL (4.5-32.2) 11/09/22 04:23 TSH 0.69 uIU/mL (0.27-4.20) 11/08/22 09:21 Urine Color Yellow (Yellow) 11/07/22 09:00 Urine Appearance Clear (CLEAR) 11/07/22 09:00 Urine pH 5 (5-7) 11/07/22 09:00 Ur Specific [place] 1.015 (1.005-1.030) 11/07/22 09:00 Urine Protein Neg (Negative) 11/07/22 09:00 Urine Glucose (UA) 4+ (Normal) H 11/07/22 09:00 Urine Ketones Negative (Negative) 11/07/22 09:00 Urine Blood Neg (Negative) 11/07/22 09:00 Urine Nitrate Negative (Negative) 11/07/22 09:00 Urine Bilirubin Neg (Negative) 11/07/22 09:00 Urine Urobilinogen Norm mg/dL (Negative) 11/07/22 09:00 Ur Leukocyte Esterase Negative (Negative) 11/07/22 09:00 Vitals Last Vital Signs Temp 98.2 F 11/10/22 03:38 Pulse 62 11/10/22 07:39 Resp 16 11/10/22 07:39 BP 133/70 11/10/22 07:39 Pulse Ox 91 11/10/22 07:39 O2 Del Method Room Air 11/10/22 07:39 O2 Flow Rate 2 11/10/22 03:38 Discharge Plan Discharge Patient Disposition: Home Condition: Stable Prescriptions: New amiodarone [Pacerone] 200 mg Tablet 100 mg PO DAILY Qty: 30 0RF Continued atorvastatin 80 mg tablet 80 mg PO BEDTIME clopidogrel 75 mg tablet 75 mg PO DAILY isosorbide mononitrate 60 mg tablet extended release 24 hr 60 mg PO DAILY tamsulosin 0.4 mg capsule 0.4 mg PO BEDTIME nitroglycerin 0.4 mg tablet, sublingual 0.4 mg sublingual Q5MIN PRN (Reason: Chest Pain) Farxiga 10 mg tablet 10 mg PO DAILY omeprazole magnesium 20 mg Capsule,Delayed Release(Dr/Ec) 20 mg PO DAILY Eliquis 5 mg Tablet 5 mg PO BID Changed glyburide 5 mg tablet 2.5 mg PO BID Qty: 30 0RF Held losartan 50 mg tablet 50 mg PO DAILY Hold Instructions: Resume on 11/24/22. furosemide 40 mg tablet 40 mg PO DAILY Hold Instructions: Check your body weight daily. Restart once weight increases by 5 lbs Discontinued metolazone 2.5 mg tablet See Rx Instructions .ROUTE .COMPLEX Rx Instructions: 2.5 mg orally Tuesday, , Tuesday amiodarone 200 mg tablet 200 mg PO DAILY Discharge Orders: Discharge Order (Routine); Ordered 11/10/22 Ordered By: Johnathon Bruce Discharge Diet: Cardiac and Diabetic Discharge Activity: Resume usual activity and Increase activity as tolerated Patient Instructions: Glyburide (By mouth) (Diabeta, Glynase Pres-Tab, Micronase), Amiodarone (By mouth) (Cordarone, Pacerone), Opioid Safety Activity Restrictions/Additional Instructions: Patient to body weight daily at home. Once your body weight increases by 5 pounds of the weight today you can start taking your Lasix 40 mg daily. Check your blood pressure daily at home. You should maintain a blood pressure diary and follow-up with a primary care provider within next 1 week to 2 weeks for further adjustment of antihypertensives. Goal blood pressure of less than 140/90 mmHg with target systolic blood pressure more than 100. Multiple medication changes have been done. They are as follows. ? Do not take metolazone anymore. ? Dose of amiodarone has been changed to 100 mg daily. ? Lasix has been withheld kilo body weight increases by 5 pounds. ? Losartan has been withheld. You should start losartan only if your blood pressure increases more than 140/90 mmHg. ? Dose of glyburide has been changed to 2.5 mg twice daily. He will benefit from an event monitor placement. He should get an event monitor placed at his primary carcass splitter and [facility]. Discharge Attestations Time Spent in Discharge Care*: greater than 30 min Specific Discharge Activities: educating patient, educating and/or supporting family/caregiver, discussing with pcp/other providers, discussing with hospice case manager/social workers/dc planners, documenting/other paperwork and evaluating patient/reviewing data Status at Discharge: Cognitive status at discharge: cognitively intact, Behavioral status at discharge: cooperative, Functional status at discharge: independent ambulation, Overall status at discharge: patient is back to baseline Quality Metrics Clinical Quality Measures [ No reported AMI, CVA or VTE this stay] Coding Level of Care Code 83400 Total time (in minutes) for Discharge: 80 Diagnoses Dizziness R42 Nonsustained ventricular tachycardia I47.29 Acute hypokalemia E87.6 Atrial fibrillation with slow ventricular response I48.91 Acute kidney injury superimposed on CKD N17.9; N18.9 Transaminitis R74.01 Elevated bilirubin R17 Hyponatremia E87.1 Total bilirubin, elevated R17 Type 2 diabetes mellitus E11.9 Diabetes mellitus complication detail: with chronic kidney disease Diabetes mellitus complication status: with kidney complications Diabetes mellitus alf 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
[2022-11-10] MEDS: insulin lispro 100 unit/1 mL SUBCUT (12:26)
[2022-11-10 13:35] VITALS: BP 117/66; PULSE 70; RESP 22; O2SAT 91
[2022-11-10 13:37] VITALS: BP 117/66; PULSE 70; RESP 22; O2SAT 91
--- NOTE | 2022-11-10 14:12 | PC.NURSE ---
Discharge Note Patient discharged to home via POV accompanied by spouse. Discharge instructions reviewed with patient and/or tax representative. Mobile pharmacy medications and/or prescriptions provided. Belongings/home medications returned.
== END 2022-11-10 14:13 | disposition home or self-care (01) | DRG 640 ==
LOC: ER 10:28 → CSU 12:13
PROVIDERS: Internal Medicine; Admitting Provider Internal Medicine; Emergency Provider Emergency Medicine; Visit Provider Student in an Organized Health Care Education/Training Program
DX: E87.6 Hypokalemia (principal); I49.01 Ventricular fibrillation; N17.9 Acute kidney failure, unspecified; I13.0 Hypertensive heart and chronic kidney disease with heart failure and stage 1 through stage 4 chronic kidney disease, or unspecified chronic kidney disease; I50.22 Chronic systolic (congestive) heart failure; I48.91 Unspecified atrial fibrillation; I95.9 Hypotension, unspecified; E11.22 Type 2 diabetes mellitus with diabetic chronic kidney disease; N18.9 Chronic kidney disease, unspecified; I25.10 Atherosclerotic heart disease of native coronary artery without angina pectoris; Z95.5 Presence of coronary angioplasty implant and graft; Z79.02 Long term (current) use of antithrombotics/antiplatelets; Z79.01 Long term (current) use of anticoagulants; E87.1 Hypo-osmolality and hyponatremia
CPT/HCPCS: 36415; 36416; 78452; 80048; 80053; 80061; 81003; 82607; 82746; 82962; 83036; 83540; 83550; 83735; 84443; 84484; 85025; 93005; 93017; 93306; 96372; 96374; 96375; 96376; 99285; A9500; J0282; J1644; J1650; J1815; J2405; J2785; J3480; J7030